=== PATIENT | female | born 1985 | race Caucasian/White ===

== ENCOUNTER → 2024-04-04 | Day surgery (SDC) | payer OTHER ==
[2024-04-01 13:07] VITALS: BMI 24.3
[~2024-04-04] MED LIST: PROPOFOL 10 MG/ML 20 ML VIAL IV ONE
[2024-04-04 11:51] VITALS: RESP 16; TEMP 97.7
[2024-04-04] MEDS: LACTATED RINGERS 1,000 ML IV SCH (11:58)
[2024-04-04] MEDS: IV FLUID CONTINUATION 1,000 ML IV ONE (12:05)
[2024-04-04] MEDS: ONDANSETRON 4 MG/2 ML VIAL IVP STA (12:06)
--- NOTE | 2024-04-04 13:06 | P.PCN ---
Date of Procedure: 04/04/24 Procedure(s) Performed: BRIEF HISTORY: Patient is a 38-year-old pleasant white female scheduled for a pouchoscopy as a part of evaluation of chronic diarrhea with 5-6 loose watery bowel movement daily with occasional blood in the stool. She has long-standing history of ulcerative colitis diagnosed in 2013 and is status post total proctocolectomy with J-pouch in 2011. PROCEDURE PERFORMED: Pouchoscopy with biopsy. PREOPERATIVE DIAGNOSIS: Chronic diarrhea with occasional rectal bleeding IV sedation per Anesthesia. PROCEDURE: After informed consent was obtained, the patient, was brought into the endoscopy unit. IV sedation was administered by Anesthesia under continuous monitoring. Digital rectal examination was normal. Initially the Olympus CF-160 flexible video colonoscope was then inserted in the rectum, gradually advanced into the the J-pouch. Anastomosis was located 10 cm from the anal verge and the fundus appeared completely normal with no evidence of pouchitis. Biopsies were done from the J-pouch. The distal ileum appeared normal. The scope was advanced at least 40 cm and the distal ileum that appeared completely normal.The patient tolerated the procedure well. IMPRESSION: Normal-appearing J-pouch with no evidence of pouchitis Normal-appearing distal ileum RECOMMENDATIONS: Findings of this examination were discussed with the patient as well as a family. She was advised to follow with the biopsy results. Follow up in office in 3-4 weeks. Recommend a repeat pouchoscopy every 2-3 years.
[2024-04-04 13:43] VITALS: BP 105/66; PULSE 56
== END ==
LOC: ORWHC2ENDO 10:44
PROVIDERS: ATTEND Internal Medicine Gastroenterology
DX: F17.200 Nicotine dependence, unspecified, uncomplicated (principal); Z85.43 Personal history of malignant neoplasm of ovary
CPT/HCPCS: 81025; 88305; 45380; J2405; J2704